=== PATIENT | male | born 1975 | race Two or more races ===

== ENCOUNTER 2023-06-08 08:56 | Emergency (ER) | payer SELFPAY ==
[~2023-06-08] VITALS: Ht 170.2 cm; Wt 83.0 kg
[2023-06-08 09:10] VITALS: BP 140/90; PULSE 110; RESP 18; TEMP 99; O2SAT 95
[2023-06-08] MEDS ORDERED: IBUP-1456 PO (11:09)
[2023-06-08] MEDS ORDERED: HYDROcodone-ACET 5/325MG TAB PO ONE (11:15)
== END 2023-06-08 11:13 | disposition home or self-care (01) ==
LOC: ER 08:56
DX: S42.302A Unspecified fracture of shaft of humerus, left arm, initial encounter for closed fracture (principal); W01.0XXA Fall on same level from slipping, tripping and stumbling without subsequent striking against object, initial encounter; Y93.89 Activity, other specified; Y92.89 Other specified places as the place of occurrence of the external cause; Y99.8 Other external cause status
CPT/HCPCS: 29105; 73060